=== PATIENT | female | born 1995 | race Hispanic/Latino ===

== ENCOUNTER 2017-04-11 07:43 | Emergency (ER) | payer BC ==
[2017-04-11 08:02] VITALS: RESP 19
[2017-04-11] MEDS ORDERED: Alum-Mag Hydrox-Simethicone Susp (30 mL) ONE ×2 (08:20→08:25)
[2017-04-11] MEDS ORDERED: Alum-Mag Hydrox-Simethicone Susp (30 mL) PO ONE (08:22)
--- NOTE | 2017-04-11 08:23 | ED PDOC ---
HPI: Abdomen Time Seen by Provider: 04/11/17 08:03 Chief Complaint (Nursing): Abdominal Pain Chief Complaint (Provider): Abdominal Pain History Per: Patient History/Exam Limitations: no limitations Onset/Duration Of Symptoms: Hrs Current Symptoms Are (Timing): Still Present Severity: Moderate Pain Scale Rating Of: 7 Location Of Pain/Discomfort: Epigastric Quality Of Discomfort: Burning, "Pain" Associated Symptoms: denies: Fever, Nausea, Diarrhea, Urinary Symptoms Exacerbating Factors: None Alleviating Factors: None Additional Complaint(s): Patient is a 21 year old female who presents to ED for upper abdominal pain ( "heartburn") with acid reflux that began this morning. Patient states that the acid reflux woke her from sleep followed by the severe upper abdominal pain with nausea and vomiting. States pain is epigastric, constant but worsened with deep inspiration and laying flat. Notes a history of acid reflux in the past but never this severe. Took Tums and Pepto this morning without any relief. PMD: In [place] Past Medical History Reviewed: Historical Data, Nursing Documentation, Vital Signs Vital Signs: Last Vital Signs Temp 97.6 F 04/11/17 09:03 Pulse 78 04/11/17 09:03 Resp 19 04/11/17 09:03 BP 126/78 04/11/17 09:03 Pulse Ox 98 04/11/17 09:03 - Medical History PMH: Anxiety, Depression - Surgical History Surgical History: No Surg Hx - Family History Family History: States: Diabetes - Living Arrangements Living Arrangements: With Friends/Others - Social History Current smoker - smoking cessation education provided: No Alcohol: Occasional - Home Medications Home Medications: Ambulatory Orders Medication Instructions Recorded Ranitidine HCl [Zantac] 1 tab PO Q12 #60 tablet 04/11/17 - Allergies Allergies/Adverse Reactions: Allergies Allergy/AdvReac Type Severity Reaction Status Date / Time amoxicillin AdvReac RASH Verified 04/11/17 08:11 Review of Systems ROS Statement: Except As Marked, All Systems Reviewed And Found Negative Constitutional: Negative for: Fever, Chills Cardiovascular: Negative for: Chest Pain Respiratory: Negative for: Shortness of Breath Gastrointestinal: Positive for: Nausea, Vomiting, Abdominal Pain. Negative for : Diarrhea Genitourinary Female: Negative for: Dysuria, Hematuria Musculoskeletal: Negative for: Neck Pain, Back Pain Skin: Negative for: Rash Neurological: Negative for: Weakness, Numbness Physical Exam - Reviewed Nursing Documentation Reviewed: Yes Vital Signs Reviewed: Yes - Physical Exam Appears: Positive for: Non-toxic, Uncomfortable Skin: Positive for: Normal Color, Warm Eye Exam: Positive for: Normal appearance Neck: Positive for: Normal, Painless ROM Cardiovascular/Chest: Positive for: Regular Rate, Rhythm, Chest Non Tender. Negative for: Murmur Respiratory: Positive for: Normal Breath Sounds. Negative for: Respiratory Distress Gastrointestinal/Abdominal: Positive for: Bowel Sounds, Soft, Tenderness (mild mid epigastric). Negative for: Distended, Guarding, Rebound Extremity: Positive for: Normal ROM Neurologic/Psych: Positive for: Alert, Oriented - ECG O2 Sat by Pulse Oximetry: 100 (RA) Pulse Ox Interpretation: Normal Medical Decision Making Medical Decision Making: Time: 804 Initial impression: Abdominal pain likely from acid reflux/gastritis Initial plan: -- EKG -- Lidocaine, Maalox and Pepcid 8:56 AM Pt feels much better. Pain is now a 3. Will d/c home. Scribe Attestation: Documented by Radha Rey acting as a scribe for Parth Ndiaye MD MD Scribe Attestation: All medical record entries made by the Scribe were at my direction and personally dictated by me. I have reviewed the chart and agree that the record accurately reflects my personal performance of the history, physical exam, medical decision making, and the department course for this patient. I have also personally directed, reviewed, and agree with the discharge instructions and disposition. Disposition - Clinical Impression Clinical Impression: Acid reflux, Heartburn - Patient ED Disposition Is Patient to be Admitted: No - Disposition Referrals: Gilmer Batista MD [Staff Provider] - Disposition: Routine/Home Disposition Time: 08:57 Condition: IMPROVED Additional Instructions: Karina, thank you for letting us take care of you today. Return to the ER if your symptoms worsen, or if any problems. Take the medication listed below as prescribed. Follow up with Dr. Batista next week. Call the phone number listed below to make an appointment. Prescriptions: Ranitidine HCl [Zantac] 1 tab PO Q12 #60 tablet Instructions: Gastroesophageal Reflux Disease (ED) Print Language: AZERI - POA Present On Arrival: None
[2017-04-11 09:05] VITALS: BP 126/78; PULSE 78; TEMP 97.6
[2017-04-11 09:26] VITALS: O2SAT 100
--- NOTE | 2017-04-11 14:37 | CARD ---
APPROVED REPORT EKG Measurement Heart [id number] <Conclusion> Sinus bradycardia Otherwise normal ECG
== END 2017-04-11 09:06 | disposition home or self-care (01) ==
LOC: H.ER 07:43
DX: K21.9 Gastro-esophageal reflux disease without esophagitis (principal); R12 Heartburn